=== PATIENT | male | born 1980 | race American Indian/Alaskan Native ===

== ENCOUNTER 2016-10-18 21:26 | Emergency (ER) | payer OTHER ==
[2016-10-18 21:37] VITALS: BP 124/83
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
== END 2016-10-19 00:49 | disposition home or self-care (01) ==
LOC: ED 21:26
DX: S39.012A Strain of muscle, fascia and tendon of lower back, initial encounter (principal); V89.2XXA Person injured in unspecified motor-vehicle accident, traffic, initial encounter; Y93.89 Activity, other specified; Y99.9 Unspecified external cause status; Y92.410 Unspecified street and highway as the place of occurrence of the external cause
CPT/HCPCS: 99282

== ENCOUNTER 2018-01-23 19:09 | Emergency (ER) | payer OTHER ==
[2018-01-23 19:17] VITALS: BP 158/89
== END 2018-01-24 00:40 | disposition left against medical advice (07) ==
LOC: ED 19:09
DX: M54.9 Dorsalgia, unspecified (principal); Z53.21 Procedure and treatment not carried out due to patient leaving prior to being seen by health care provider